=== PATIENT | male | born 1980 | race Two or more races ===

== ENCOUNTER 2016-07-06 13:59 | Emergency (ER) | payer SELFPAY ==
[2016-07-06 14:56] VITALS: TEMP 97.5; BMI 28.7
--- NOTE | 2016-07-06 15:31 | EDPRACDOC ---
- General Information Chief Complaint: Generalized Weakness Stated Complaint: DIZZY Time Seen by Provider: 07/06/16 15:08 Information Source: Patient Home Medications: Home Medications Aspirin/Calcium Carbonate/Mag [Aspirin Buffered 325 mg Tab] 325 mg PO DAILY PRN 07/06/16 Allergies/Adverse Reactions: Allergies Allergy/AdvReac Type Severity Reaction Status Date / Time No Known Allergies Allergy Verified 07/06/16 14:56 - History of Present Illness Onset: TODAY Symptoms Started: Reports: Gradually, With light exertion Symptoms Description: Other (INTERMITTENT) Weakness: Bilateral: Generalized Symptoms: Reports: Vertigo (FEELS LIKE HE MIGHT LOOSE HIS BALANCE AND FALL), Weak Symptom Severity: Reports: Does not affect activitiy Relevant History of: Denies: O, Anemia, CVA, DM, Electrolyte disorder, GI Bleed , PR, TIA Associated signs and symptoms:: Reports: Chest pain ("TWINGE OF PAIN" IN LEFT CHEST AND LEFT ARM), 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 Denies: GI Bleed, Fever, Nausea, Palpitations, Vomiting ED Past Medical History - History Reviewed Yes Nurses notes reviewed and agree except as marked No Past Medical History: Yes Patient has no past medical history - Patient Medical History Surgical History: Reports: No Significant History - Social Medical History Smoking Status: Never smoker ETOH: None Substance Abuse: None Lives With: Family Lives In: Home EDM Review of Systems - Review of Systems ROS Negative Except as Marked: Yes All systems reviewed and were negative except as marked - Physical Exam Constitutional: Alert (Awake), No apparent distress Oriented to: Time, Person, Place Last recorded Vital Signs: Last Vital Signs Temp 97.5 F 07/06/16 14:53 Pulse 71 07/06/16 14:53 Resp 18 07/06/16 14:53 BP 140/76 07/06/16 14:53 Pulse Ox 100 07/06/16 14:53 Oxygen Pulse Oxygen Saturation 100 O2 Device Room Air Oxygen Flow Rate Fraction of Inspired Oxygen ( FIO2) - HEENT Head: Normal ( normocephalic) Eye Exam: Normal (PERRL, EOMI, Sclera white) Oropharynx: Normal (Pharynx:Moist without exudate,Gums-no swelling) Tympanic Membrane: Normal ENT EAC: Normal TMJ: Normal Nose: No Symptoms Reported (septum midline) Neck: Normal (FROM, trachea at midline) - Respiratory/Cardiovascular Respiratory: Normal - CTA (BBS clear to auscultation without adventitious sounds ) Cardiovascular: Normal (RRR without murmur, gallop or rub) - GI Auscultation: Normal (NABS) Palpation: Normal (Soft,No rebound or guarding, non distended) Tenderness: Non tender Celaya's Sign: Negative - Musculoskeletal Back: Normal (Non-Tender) Extremities: Normal (Normal tone, Pulses 2+ No cyanosis or edema, FROM) - Integumentary Skin: Normal, Warm, Dry Lymphatics: Normal (no adenopathy) - Neurologic Memory Impaired: Normal Motor Function: Normal (Normal tone, Pulses 2+ No cyanosis or edema, FROM) Cranial Nerve: Normal (CN II-X11 intact sensation, strength 5/5) Cerebellar: Normal Mood Description: Normal Thought: Coherent Perception: Normal NIH Stroke Scale Re-evaluation 1 Level of Consciousness: Alert LOC- Question: Answers Both Correctly LOC Commands: Both Task Correctly Best Gaze: Normal Visual: No Visual Loss Facial Palsy: Normal Movement Motor Arm LEFT: No Drift Motor Arm RIGHT: No Drift Motor Leg LEFT: No Drift Motor Leg RIGHT: No Drift Limb Ataxia: Absent Sensory: Normal Best Language: No Aphasia Dysarthria: Normal Extinction and Inattention: No Abnormality (Neglect) Score: 0out of42 - Results 07/06/16 15:40 07/06/16 15:40 - EKG EKG #1 EKG Time: 14:55 -: Yes EKG interpreted by me Rate: bpm: 75 [place]: Normal Rhythm: NSR Block: None Hypertrophy: None ST: Normal - Diagnostic Imaging Chest Image interpreted by: Radiologist Patient Name: ALEXI MABRY LOC: ED : 1980 AGE: 36 Order Date:07/06/16 Date of Service: Report # [id number] Ord Physician: Surekha Wells MD Exam # [id number] Emergency Physician: Surekha Wells MD Exam(s): [id number] RAD/DG CHEST 2V CLINICAL DATA: Shortness of breath. EXAM: CHEST 2 VIEW COMPARISON: None. FINDINGS: The heart size and mediastinal contours are within normal limits. Both lungs are clear. No pneumothorax or pleural effusion is noted. The visualized skeletal structures are unremarkable. IMPRESSION: No active cardiopulmonary disease. Electronically Signed By: Gwyn Servin Jr, M.D. On: 07/06/2016 15:44 Electronically Signed By: Gwyn Servin MD Electronically Signed Date/Time: [id number] Dictate Date/Time: 07/06/16 1543 Technologist: Luke Ahumada Transcribed By: Fam Transcribed Date/Time: 07/06/16 1544 - Departure Disposition: Home Condition: Stable Final Diagnosis: Malaise and fatigue, Dizziness of unknown cause Instructions: Weakness (General), Weakness (ED), Dizziness (ED) Education/Counseling Given To: Patient Education/Counseling Given Regarding: Diagnosis, Treatment, Prognosis Referrals: None,No Provider [Primary Care Provider] - One Week
--- NOTE | 2016-07-06 15:47 | DIRPT ---
CLINICAL DATA: Shortness of breath. EXAM: CHEST 2 VIEW COMPARISON: None. FINDINGS: The heart size and mediastinal contours are within normal limits. Both lungs are clear. No pneumothorax or pleural effusion is noted. The visualized skeletal structures are unremarkable. IMPRESSION: No active cardiopulmonary disease. Electronically Signed By: Gwyn Servin Jr, M.D. On: 07/06/2016 15:44
[2016-07-06 15:51] LABS: AUTOMATED BASOPHIL 0.8 % (0-2); AUTOMATED EOSINOPHIL 0.7 % (0-5); AUTOMATED MONOCYTE 5.6 % (3-10); AUTOMATED NEUTROPHIL 61.9 % (45-76); MPV 8.9 fL (7.4-10.4)
[2016-07-06 16:08] LABS: BLOOD UREA NITROGEN 15 MG/DL (9-20); CALCIUM 9.7 MG/DL (8.4-10.2); CALCULATED OSMOLALITY 274 MOs/Kg (270-290); CHLORIDE 106 mEq/L (98-107); GLUCOSE 92 MG/DL (70-99); SODIUM LEVEL 142 mEq/L (137-146); TOTAL PROTEIN 8.3 G/DL (6.3-8.2)
[2016-07-06 17:25] VITALS: BP 109/79; PULSE 64
== END 2016-07-06 17:13 | disposition home or self-care (01) ==
LOC: ED 13:59
DX: R42 Dizziness and giddiness (principal); R53.81 Other malaise
CPT/HCPCS: 36415; 71020; 80053; 84484; 85025; 85379; 93005; 99284

== ENCOUNTER 2016-07-11 10:30 | Emergency (ER) | payer SELFPAY ==
[2016-07-11 10:32] VITALS: BMI 28.7
[2016-07-11 10:48] VITALS: TEMP 98.6
[2016-07-11 11:05] LABS: AUTOMATED BASOPHIL 1.1 % (0-2); AUTOMATED EOSINOPHIL 1.7 % (0-5); AUTOMATED LYMPH 36.9 % (17-44); AUTOMATED MONOCYTE 6.2 % (3-10); AUTOMATED NEUTROPHIL 54.1 % (45-76); MPV 8.9 fL (7.4-10.4)
[2016-07-11 11:16] LABS: BLOOD UREA NITROGEN 14 MG/DL (9-20); CALCULATED OSMOLALITY 276 MOs/Kg (270-290); CHLORIDE 107 mEq/L (98-107); GLUCOSE 92 MG/DL (70-99); SODIUM LEVEL 143 mEq/L (137-146); TOTAL PROTEIN 8.2 G/DL (6.3-8.2)
[2016-07-11 11:18] LABS: PARTIAL THROMB. TIME 26.1 SEC (22-35)
--- NOTE | 2016-07-11 12:21 | EDPRACDOC ---
- General Information Chief Complaint: Neuro Symptoms/Deficits Stated Complaint: CP/ NUMBNESS IN LEFT ARM Time Seen by Provider: 07/11/16 11:50 Information Source: Patient Mode of Arrival: Car Home Medications: Home Medications Metoprolol Tartrate 25 mg PO BID #60 tablet 07/11/16 Allergies/Adverse Reactions: Allergies Allergy/AdvReac Type Severity Reaction Status Date / Time No Known Allergies Allergy Verified 07/11/16 10:48 - History of Present Illness Onset: 1 WK HPI: PT PRESENTS WITH PERSISTENT SUBSTERNAL CHEST PRESSURE INTERMITTENT IN NATURE FOR THE LAST WEEK. WAS IN ER LAST WEEK FOR SAME WITH NORMAL TESTING. TODAY HE DEVELOPED CHEST PAIN WITH TINGLING TO HIS LEFT FINGERS THAT HAS NOW IMPROVED. Chest Pain Location: Reports: Substernal, Right Chest, Left Chest Pain Radiation: Reports: None Symptoms Occur: Reports: At Rest Associated Signs and Symptoms: Reports: SOB, Palpitations. Denies: Abdominal Pain, Vomiting ED Past Medical History - History Reviewed Yes Nurses notes reviewed and agree except as marked No Past Medical History: Yes Patient has no past medical history - Patient Medical History Psychological History: Denies: Depression Systemic History: Denies: Cancer - Social Medical History Smoking Status: Never smoker Lives In: Home EDM Review of Systems - Review of Systems ROS Negative Except as Marked: Yes All systems reviewed and were negative except as marked Constitutional: negative: Fever Respiratory: Shortness of Breath Cardiovascular: Chest Pain (BANDLIKE PRESSURE ACROSS CENTRAL CHEST.), Syncope ( NEAR SYNCOPE) Gastrointestinal: negative: Nausea, Pain, Vomiting Neurological: Tingling (RESOLVED TO LEFT HAND) - Physical Exam Constitutional: Alert Oriented to: Time, Person, Place Last recorded Vital Signs: Last Vital Signs Temp 98.6 F 07/11/16 10:43 Pulse 89 07/11/16 11:50 Resp 18 07/11/16 11:50 BP 179/82 07/11/16 11:50 Pulse Ox 92 07/11/16 11:50 Oxygen Pulse Oxygen Saturation 92 O2 Device Room Air Oxygen Flow Rate Fraction of Inspired Oxygen ( FIO2) - HEENT Head: negative: Deformity, Laceration Eye Exam: negative: Conjunctival Injection, Pale Conjunctiva Oropharynx: negative: Membranes Dry Nose: negative: Congestion, Discharge Neck: negative: Limited ROM - Respiratory/Cardiovascular Respiratory: Normal - CTA. negative: Accessory Muscle Use, Diminished, Tachypnea Cardiovascular: negative: Bradycardia, Tachycardia, Irregular - GI Auscultation: Normal Palpation: Normal Tenderness: Non tender - Musculoskeletal Extremities: Pedal Pulse (PALPABLE), Radial Pulse (PALPABLE). negative: Calf Tenderness, Pedal Edema - Integumentary Skin: Warm, Dry. negative: Rash - Neurologic Memory Impaired: Normal Motor Function: Normal Mood Description: Anxious, Appropriate Thought: Coherent Perception: Normal ED Chest Pain Exam - Respiratory/Cardiovascular Chest Palpation: negative: Tender, Reproduces Pain - Action Patient received Aspirin within last 24 hours?: No ASA given in the ED: No - Results 07/11/16 10:50 07/11/16 10:50 WBC 7.1 xk/uL (3.8-10.8) 07/11/16 10:50 RBC 5.77 xM/uL (4.70-6.10) 07/11/16 10:50 Hgb 16.6 g/dL (14.0-18.0) 07/11/16 10:50 Hct 48.9 % (42-52) 07/11/16 10:50 MCV 85 fL (80-94) 07/11/16 10:50 MCH 28.8 pg (27-32) 07/11/16 10:50 MCHC 34.0 g/dl (33-36) 07/11/16 10:50 RDW 12.9 % (11.5-14.5) 07/11/16 10:50 Plt Count 200 xk/uL (130-400) 07/11/16 10:50 MPV 8.9 fL (7.4-10.4) 07/11/16 10:50 Neut % (Auto) 54.1 % (45-76) 07/11/16 10:50 Lymph % (Auto) 36.9 % (17-44) 07/11/16 10:50 [place] % (Auto) 6.2 % (3-10) 07/11/16 10:50 Eos % (Auto) 1.7 % (0-5) 07/11/16 10:50 Baso % (Auto) 1.1 % (0-2) 07/11/16 10:50 Absolute Neuts (auto) 3.83 xk/uL (1.7-8.2) 07/11/16 10:50 Absolute Lymphs (auto) 2.56 xk/uL (0.65-4.75) 07/11/16 10:50 PT 10.2 SEC (9.2-11.2) 07/11/16 10:50 INR 1.0 07/11/16 10:50 APTT 26.1 SEC (22-35) 07/11/16 10:50 Sodium 143 mEq/L (137-146) 07/11/16 10:50 Potassium 4.1 mEq/L (3.5-5.1) 07/11/16 10:50 Chloride 107 mEq/L (98-107) 07/11/16 10:50 Carbon Dioxide 23 mMOL/L (22-33) 07/11/16 10:50 Anion Gap 17 mEq/L (8-16) H 07/11/16 10:50 BUN 14 MG/DL (9-20) 07/11/16 10:50 Creatinine 0.80 MG/DL (0.66-1.25) 07/11/16 10:50 Estimated GFR (MDRD) > 60 mL/min (>=60) 07/11/16 10:50 Glucose 92 MG/DL (70-99) 07/11/16 10:50 Calculated Osmolality 276 MOs/Kg (270-290) 07/11/16 10:50 Calcium 10.0 MG/DL (8.4-10.2) 07/11/16 10:50 Total Bilirubin 0.4 MG/DL (0.2-1.3) 07/11/16 10:50 AST 22 IU/L (17-59) 07/11/16 10:50 ALT 38 IU/L (21-72) 07/11/16 10:50 Alkaline Phosphatase 83 IU/L (38-126) 07/11/16 10:50 Troponin I < 0.01 ng/mL (<.04) 07/11/16 10:50 Emv-J-Dvxrojgunaz Pept 37 pg/mL (0-450) 07/11/16 10:50 Total Protein 8.2 G/DL (6.3-8.2) 07/11/16 10:50 Albumin 4.8 G/DL (3.5-5.0) 07/11/16 10:50 Lab Results 07/11/16 07/11/16 07/11/16 10:50 10:50 10:50 WBC 7.1 RBC 5.77 Hgb 16.6 Hct 48.9 MCV 85 MCH 28.8 MCHC 34.0 RDW 12.9 Plt Count 200 MPV 8.9 Neut % (Auto) 54.1 Lymph % (Auto) 36.9 [place] % (Auto) 6.2 Eos % (Auto) 1.7 Baso % (Auto) 1.1 Absolute Neuts (auto) 3.83 Absolute Lymphs (auto) 2.56 PT 10.2 INR 1.0 APTT 26.1 Sodium 143 Potassium 4.1 Chloride 107 Carbon Dioxide 23 Anion Gap 17 H BUN 14 Creatinine 0.80 Estimated GFR (MDRD) > 60 Glucose 92 Calculated Osmolality 276 Calcium 10.0 Total Bilirubin 0.4 AST 22 ALT 38 Alkaline Phosphatase 83 Troponin I < 0.01 Blf-Q-Nvcfmqzubig Pept 37 Total Protein 8.2 Albumin 4.8 Laboratory Results - last 24 hr 07/11/16 07/11/16 07/11/16 10:50 10:50 10:50 WBC 7.1 RBC 5.77 Hgb 16.6 Hct 48.9 MCV 85 MCH 28.8 MCHC 34.0 RDW 12.9 Plt Count 200 MPV 8.9 Neut % (Auto) 54.1 Lymph % (Auto) 36.9 [place] % (Auto) 6.2 Eos % (Auto) 1.7 Baso % (Auto) 1.1 Absolute Neuts (auto) 3.83 Absolute Lymphs (auto) 2.56 PT 10.2 INR 1.0 APTT 26.1 Sodium 143 Potassium 4.1 Chloride 107 Carbon Dioxide 23 Anion Gap 17 H BUN 14 Creatinine 0.80 Estimated GFR (MDRD) > 60 Glucose 92 Calculated Osmolality 276 Calcium 10.0 Total Bilirubin 0.4 AST 22 ALT 38 Alkaline Phosphatase 83 Troponin I < 0.01 Ydk-Y-Kifyvihnomf Pept 37 Total Protein 8.2 Albumin 4.8 Laboratory Results 07/11/16 10:50 07/11/16 10:50 - EKG EKG #1 EKG Time: 10:36 -: Yes EKG interpreted by me Rate: bpm: 71 [place]: Normal Rhythm: NSR Block: None Hypertrophy: None ST: Normal Decision Time to Discharge: 12:59 - Departure Yes I personally saw and evaluated the patient. Disposition: Home Condition: Stable Final Diagnosis: Dizziness of unknown cause Hypertension Qualifiers: Hypertension type: essential hypertension Qualified Code(s): I10 - Essential ( primary) hypertension Instructions: Chronic Hypertension (ED), Hypertension (ED) Education/Counseling Given To: Patient Education/Counseling Given Regarding: Diagnosis, Treatment, Prognosis, Follow Up Referrals: None,No Provider [Primary Care Provider] - One Week aRshi Crawford MD [Staff Physician] - As Needed Prescriptions: Metoprolol Tartrate 25 mg PO BID #60 tablet
--- NOTE | 2016-07-11 12:45 | DIRPT ---
CLINICAL DATA: Chest pain for 1 week EXAM: CHEST 2 VIEW COMPARISON: 07/06/2016 FINDINGS: Cardiac shadow is stable. The lungs are well aerated bilaterally. No focal infiltrate or sizable effusion is seen. No bony abnormality is noted. IMPRESSION: No active cardiopulmonary disease. Electronically Signed By: Branden Ceja M.D. On: 07/11/2016 12:42
[2016-07-11 13:23] VITALS: BP 107/64; PULSE 75
== END 2016-07-11 13:20 | disposition home or self-care (01) ==
LOC: ED 10:30
DX: R42 Dizziness and giddiness (principal); I10 Essential (primary) hypertension
CPT/HCPCS: 36415; 71020; 80053; 83880; 84484; 85025; 85610; 85730; 93005; 99284

== ENCOUNTER 2016-07-17 04:48 | Emergency (ER) | payer SELFPAY ==
[2016-07-17 05:01] VITALS: BMI 28.9
--- NOTE | 2016-07-17 05:10 | EDPRACDOC ---
- General Information Chief Complaint: Dyspnea/Resp distress Stated Complaint: TROUBLE BREATHING Time Seen by Provider: 07/17/16 05:03 Information Source: Patient, Family Mode Of Arrival: Walk Home Medications: Home Medications Metoprolol Tartrate 25 mg PO BID #60 tablet 07/11/16 Allergies/Adverse Reactions: Allergies Allergy/AdvReac Type Severity Reaction Status Date / Time No Known Allergies Allergy Verified 07/11/16 10:48 - History of Present Illness HPI: WOKE UP 0300 SOB. REPORTS SIMILAR EVENTS 2 TIMES IN 2 WEEKS. REPORTS NEGATIVE LABS. SOMETIMES PAIN IN CHEST. NO PAIN TODAY. YESTERDAY HAD SOME LITTLE CHEST PAIN. NONSMOKER. PARENTS NO [place]. NO CHOL. THIS EPISODE LASTED ABOUT 2 HOURS. STARTED ON METOPROLOL FOR HTN. DIZZINESS HAS IMPROVED. ED Past Medical History - History Reviewed Yes Nurses notes reviewed and agree except as marked - Patient Medical History Psychological History: Reports: Anxiety. Denies: Depression Systemic History: Denies: Cancer - Social Medical History Smoking Status: Never smoker EDM Review of Systems - Review of Systems ROS Negative Except as Marked: Yes All systems reviewed and were negative except as marked Constitutional: No Symptoms Reported Respiratory: Shortness of Breath Gastrointestinal: No Symptoms Reported Genitourinary: No Symptoms Reported Neurological: No Symptoms Reported Musculoskeletal: No Symptoms Reported - Physical Exam Constitutional: Alert (Awake), No apparent distress Oriented to: Time, Person, Place Last recorded Vital Signs: Last Vital Signs Temp 97.5 F 07/17/16 04:54 Pulse 71 07/17/16 04:54 Resp 18 07/17/16 04:54 BP 123/70 07/17/16 04:54 Pulse Ox 97 07/17/16 04:54 Oxygen Pulse Oxygen Saturation 97 O2 Device Room Air Oxygen Flow Rate Fraction of Inspired Oxygen ( FIO2) - HEENT Head: Normal ( normocephalic) Eye Exam: Normal (PERRL, EOMI, Sclera white) Oropharynx: Normal (Pharynx:Moist without exudate,Gums-no swelling) Nose: No Symptoms Reported (septum midline) Neck: Normal (FROM, trachea at midline) - Respiratory/Cardiovascular Respiratory: Normal - CTA (BBS clear to auscultation without adventitious sounds ) Cardiovascular: Normal (RRR without murmur, gallop or rub) - GI Auscultation: Normal (NABS) Palpation: Normal (Soft,No rebound or guarding, non distended) Tenderness: Non tender Celaya's Sign: Negative - Musculoskeletal Back: Normal (Non-Tender) Extremities: Normal (Normal tone, Pulses 2+ No cyanosis or edema, FROM) - Integumentary Skin: Normal, Warm, Dry Lymphatics: Normal (no adenopathy) - Neurologic Memory Impaired: Normal Motor Function: Normal (Normal tone, Pulses 2+ No cyanosis or edema, FROM) Cranial Nerve: Normal (CN II-X11 intact sensation, strength 5/5) Cerebellar: Normal Mood Description: Normal Perception: Normal ED SOB MDM - EKG EKG #1 EKG Time: 05:22 -: Yes EKG interpreted by me Rate: bpm: 63 [place]: Normal Rhythm: SB Block: None Hypertrophy: None ST: Normal Comments: NORMAL EKG Comparison: 07/11/16 - Departure Yes I personally saw and evaluated the patient. Disposition: Home Condition: Stable Final Diagnosis: Dyspnea Qualifiers: Dyspnea type: unspecified Qualified Code(s): R06.00 - Dyspnea, unspecified Instructions: Dyspnea (ED) Education/Counseling Given To: Patient Education/Counseling Given Regarding: Diagnosis Referrals: Gary Ackerman MD [Staff Physician] - Call for Appointment Prescriptions: No Action Metoprolol Tartrate 25 mg PO BID #60 tablet
[2016-07-17 06:20] VITALS: BP 106/73; PULSE 67; TEMP 97.9
== END 2016-07-17 06:19 | disposition home or self-care (01) ==
LOC: ED 04:48
DX: R06.00 Dyspnea, unspecified (principal)
CPT/HCPCS: 93005; 99283